=== PATIENT | male | born 1960 | race Caucasian/White ===

== ENCOUNTER 2017-04-02 14:46 | Observation (INO) | payer OTHER ==
[~2017-04-02] VITALS: Ht 182.9 cm; Wt 90.0 kg
[2017-04-02 14:48] VITALS: BP 180/98; PULSE 77; RESP 17; TEMP 98.4; O2SAT 100
--- NOTE | 2017-04-02 15:02 | PD ---
HPI Chief Complaint: Cardiac Complaint Time Seen by Provider: 15:02 Travel History International Travel<30 days: No Contact w/Intl Traveler<30days: No Traveled to known affect area: No History of Present Illness HPI 56-year-old male with history of diabetes, tobacco cigarette use, presents to emergency department for evaluation of left-sided chest pain. Patient states he was awoken this morning by a sudden pain in his left chest. This radiated to his left arm with associated shortness of breath and lightheadedness. Patient states that it did subside however he has had different palpitations and sensations in his chest throughout the day. Currently he is pain-free. Patient states he has not had a heart attack in the past. He does recall a stress test approximately 7 years ago. Denies any recent illnesses, fever, or chills. Patient would also like me to evaluate his right great toe. He states that he has had a wound on the plantar surface of it for the last 3 months and has been "handling it pretty well." He states that he noticed this morning the toe was red and swollen and more painful. Denies any new injury. No fever or chills. No other symptoms at this time. PFSH Past Medical History Diabetes: Yes Social History Tobacco Use: Yes Allergies-Medications (Allergen,Severity, Reaction): Coded Allergies: No Known Allergies (Unverified , 04/02/17) Review of Systems Except as stated in HPI: all other systems reviewed are Neg Physical Exam Narrative GENERAL: Well-nourished male patient, in no acute distress SKIN: Focused skin assessment warm/dry. There is a 1 cm in diameter callus on the plantar surface of the right great toe with an opening at the middle. The toe is erythematous and tender to touch. HEAD: Atraumatic. Normocephalic. EYES: Pupils equal and round. No scleral icterus. No injection or drainage. ENT: No nasal bleeding or discharge. Mucous membranes pink and moist. NECK: Trachea midline. No JVD. CARDIOVASCULAR: Regular rate and rhythm. No murmur appreciated. RESPIRATORY: No accessory muscle use. Clear to auscultation. Breath sounds equal bilaterally. GASTROINTESTINAL: Abdomen soft, non-tender, nondistended. Hepatic and splenic margins not palpable. MUSCULOSKELETAL: No obvious deformities. No clubbing. No cyanosis. NEUROLOGICAL: Awake and alert. No obvious cranial nerve deficits. Motor grossly within normal limits. Normal speech. Data Data Last Documented VS Vital Signs Date Time Temp Pulse Resp B/P Pulse Ox O2 Delivery O2 Flow Rate FiO2 04/02/17 16:46 97.8 69 16 172/86 100 Room Air Orders Electrocardiogram (04/02/17 15:34) Basic Metabolic Panel (Bmp) (04/02/17 15:34) Ckmb (Isoenzyme) Profile (04/02/17 15:34) Complete Blood Count With Diff (04/02/17 15:34) Magnesium (Mg) (04/02/17 15:34) Prothrombin Time / Inr (Pt) (04/02/17 15:34) Act Partial Throm Time (Ptt) (04/02/17 15:34) Troponin I (04/02/17 15:34) Chest, Single Ap (04/02/17 15:34) Ecg Monitoring (04/02/17 15:34) Bilateral Bp Monitoring (04/02/17 15:34) Iv Access Insert/Monitor (04/02/17 15:34) Oximetry (04/02/17 15:34) Oxygen Administration (04/02/17 15:34) Sodium Chloride 0.9% Flush (Ns Flush) (04/02/17 15:45) Sodium Chlorid 0.9% 500 Ml Inj (Ns 500 M (04/02/17 15:45) Toe (Min 2vws) (04/02/17 ) Sulfamet-Trimeth Ds 800-160 Mg (Bactrim (04/02/17 17:30) Cephalexin (Keflex) (04/02/17 17:30) Labs Laboratory Tests Test 04/02/17 15:35 White Blood Count 8.0 TH/MM3 Red Blood Count 5.52 MIL/MM3 Hemoglobin 14.6 GM/DL Hematocrit 44.3 % Mean Corpuscular Volume 80.3 FL Mean Corpuscular Hemoglobin 26.5 PG Mean Corpuscular Hemoglobin 33.0 % Concent Red Cell Distribution Width 15.1 % Platelet Count 299 TH/MM3 Mean Platelet Volume 8.5 FL Neutrophils (%) (Auto) 67.6 % Lymphocytes (%) (Auto) 21.8 % Monocytes (%) (Auto) 8.2 % Eosinophils (%) (Auto) 2.1 % Basophils (%) (Auto) 0.3 % Neutrophils # (Auto) 5.4 TH/MM3 Lymphocytes # (Auto) 1.7 TH/MM3 Monocytes # (Auto) 0.7 TH/MM3 Eosinophils # (Auto) 0.2 TH/MM3 Basophils # (Auto) 0.0 TH/MM3 CBC Comment DIFF FINAL Differential Comment Prothrombin Time 10.3 SEC Prothromb Time International 0.9 RATIO Ratio Activated Partial 30.2 SEC Thromboplast Time Sodium Level 138 MEQ/L Potassium Level 4.3 MEQ/L Chloride Level 104 MEQ/L Carbon Dioxide Level 30.1 MEQ/L Anion Gap 4 MEQ/L Blood Urea Nitrogen 15 MG/DL Creatinine 1.02 MG/DL Estimat Glomerular Filtration 75 ML/MIN Rate Random Glucose 191 MG/DL Calcium Level 9.3 MG/DL Magnesium Level 2.2 MG/DL Total Creatine Kinase 62 U/L Troponin I LESS THAN 0.02 NG/ML MDM Medical Decision Making Medical Screen Exam Complete: Yes Emergency Medical Condition: Yes Medical Record Reviewed: Yes Differential Diagnosis Chest wall pain versus ACS versus pleuritic pain versus anxiety Cellulitis versus osteoarthritis versus abscess Narrative Course 56-year-old male presents to emergency department for evaluation. Patient appears without distress. He does have noticed cellulitis of the right great toe and will be given Bactrim and Keflex for this.. X-ray imaging is without acute bony abnormality. CBC is without leukocytosis. BMP is also without acute concern. Troponin is less than 0.02. Chest x-ray shows no acute cardiopulmonary disease. Patient will be admitted for further evaluation of this chest pain to the chest pain center. Diagnosis Primary Impression: Chest pain Qualified Code: R07.9 - Chest pain, unspecified type Additional Impression: Cellulitis of right toe Admitting Information Admitting Physician Requests: Observation Med/Other Pt SpecificInfo: Prescription(s) given Scripts Cephalexin (Keflex)500 Mg [id number] Mg PO Q6H 5 Days Ref 0 Prov:Shereen Ziegler 04/02/17 Sulfamethoxazole-Trimethoprim (Bactrim DS)800-160 Mg Tab1 Tab PO BID #20 TAB Ref 0 Prov:Shereen Ziegler 04/02/17 Condition: Stable Shereen Ziegler Apr 02, 2017 15:02
[2017-04-02 15:07] VITALS: BP 174/92; PULSE 77; RESP 16; O2SAT 99
[2017-04-02 15:36] VITALS: RESP 17; O2SAT 100
[2017-04-02] MEDS: SODIUM CHLORIDE 0.9% FLUSH 10 ML FLUSH IVF PRN ×2 (15:39→16:46)
[2017-04-02 15:40] VITALS: BP_SYST 146; BP_SYST 174; BP_DIAS 75; BP_DIAS 85; PULSE 76; RESP 17; O2SAT 99
[2017-04-02] MEDS ORDERED: SODIUM CHLORID 0.9% 500 ML INJ 500 ML IV ONE (15:45)
--- NOTE | 2017-04-02 16:10 | RADRPT ---
EXAM DATE/TIME: 04/02/2017 15:59 [facility] COMPARISON: No previous studies available for comparison. INDICATIONS : Swelling, inflammation, and pain in tuft of 1st digit, right foot. No known injury. MEDICAL HISTORY : None. SURGICAL HISTORY : None. ENCOUNTER: Initial ACUITY: 2 days PAIN SCORE: 7/10 LOCATION: Right 1st digit, right foot. FINDINGS: Examination of the first digit of the right foot demonstrates no evidence of fracture or dislocation. No radiopaque foreign bodies are seen. The soft tissues are intact. CONCLUSION: Negative for fracture or significant degenerative changes. Hemant Barajas MD FACR on April 02, 2017 at 16:07 Board Certified Radiologist. This report was verified electronically.
--- NOTE | 2017-04-02 16:11 | RADRPT ---
EXAM DATE/TIME: 04/02/2017 15:57 [facility] COMPARISON: No previous studies available for comparison. INDICATIONS : Heart palpitations and shortness of breath. MEDICAL HISTORY : None. SURGICAL HISTORY : None. ENCOUNTER: Initial ACUITY: 1 day PAIN SCORE: 0/10 LOCATION: chest FINDINGS: A single view of the chest demonstrates the lungs to be symmetrically aerated without evidence of mas s, infiltrate or effusion. The cardiomediastinal contours are unremarkable. Osseous structures are intact. CONCLUSION: 1. No acute cardiopulmonary disease. Larry Zee MD on April 02, 2017 at 16:08 Board Certified Radiologist. This report was verified electronically.
[2017-04-02 16:38] LABS: AUTOMATED NEUTROPHIL # 5.4 TH/MM3 (1.8-7.7); BASOPHIL % 0.3 % (0.0-2.0); EOSINOPHIL # 0.2 TH/MM3 (0-0.4); EOSINOPHIL % 2.1 % (0.0-4.0); HEMATOCRIT 44.3 % (39.0-51.0); HEMO FLAGS DIFF FINAL; LYMPH % 21.8 % (9.0-44.0); LYMPHOCYTE # 1.7 TH/MM3 (1.0-4.8); MEAN CELL VOLUME 80.3 FL (80.0-100.0); MEAN CORPUSCULAR HEMOGLOBIN 26.5 PG (27.0-34.0); MONO % 8.2 % (0.0-8.0); NEUT % 67.6 % (16.0-70.0); PLATELET COUNT 299 TH/MM3 (150-450); RED BLOOD COUNT 5.52 MIL/MM3 (4.50-5.90); RED CELL DISTRIBUTION WIDTH 15.1 % (11.6-17.2)
[2017-04-02 16:42] VITALS: BP 161/89; PULSE 68; RESP 16; TEMP 97.9; O2SAT 100
[2017-04-02 16:46] VITALS: BP 172/86; PULSE 69; RESP 16; TEMP 97.8; O2SAT 100
[2017-04-02 16:50] LABS: APTT (PATIENT) 30.2 SEC (24.3-30.1); INTERNATIONAL NORMALIZED RATIO 0.9 RATIO; PROTHROMBIN TIME - PATIENT 10.3 SEC (9.8-11.6)
[2017-04-02 17:06] LABS: ANION GAP 4 MEQ/L (5-15); BICARBONATE 30.1 MEQ/L (21.0-32.0); BLOOD UREA NITROGEN 15 MG/DL (7-18); CHLORIDE 104 MEQ/L (98-107); GLOMERULAR FILTRATION RATE 75 ML/MIN (>89); MAGNESIUM 2.2 MG/DL (1.5-2.5); POTASSIUM 4.3 MEQ/L (3.5-5.1); SODIUM (NA) 138 MEQ/L (136-145)
[2017-04-02 17:07] LABS: CREATINE KINASE 62 U/L (39-308)
[2017-04-02] MEDS ORDERED: SULFAMETHOXAZOLE-TRIMETHOPRIM DS 800-160 MG TAB PO ONE (17:30)
[2017-04-02] MEDS ORDERED: CEPHALEXIN MONOHYDRATE 500 MG CAP PO ONE (17:30)
[2017-04-02] MEDS ORDERED: BACT800T5 PO (17:48)
[2017-04-02] MEDS ORDERED: CEPH-460 PO (17:48)
--- NOTE | 2017-04-03 08:01 | EKG ---
Date Performed: 04/02/2017 Time Performed: 16:04:54 PTAGE: 56 years EKG: Sinus rhythm NORMAL ECG NO PREVIOUS TRACING DOCTOR: Quinton Pearson Interpretating Date/Time 04/03/2017 07:56:12
== END 2017-04-02 18:14 | disposition left against medical advice (07) ==
LOC: NEPC 14:46 → NEDA 17:52
PROVIDERS: ADMIT Internal Medicine Cardiovascular Disease; ATTEND Internal Medicine Cardiovascular Disease
DX: R07.9 Chest pain, unspecified (principal); L03.031 Cellulitis of right toe; M79.602 Pain in left arm; R06.02 Shortness of breath; R42 Dizziness and giddiness; R00.2 Palpitations; E11.9 Type 2 diabetes mellitus without complications; F17.210 Nicotine dependence, cigarettes, uncomplicated
CPT/HCPCS: 71010; 73660; 80048; 82550; 83735; 84484; 85025; 85610; 85730; 93005; 96360; 99285; J7040

== ENCOUNTER 2018-03-13 14:13 | Inpatient (IN) | payer MEDICAID, OTHER ==
[~2018-03-13] VITALS: Ht 182.9 cm; Wt 102.1 kg
[~2018-03-13 14:13] MED LIST: BACT800T5 PO; CEPH-460 PO
[2018-03-13 14:17] VITALS: BP 165/78; PULSE 64; RESP 16; TEMP 98.3; O2SAT 98
--- NOTE | 2018-03-13 14:27 | PD ---
HPI Chief Complaint: Skin Problem Time Seen by Provider: 14:26 Travel History International Travel<30 days: No Contact w/Intl Traveler<30days: No Traveled to known affect area: No History of Present Illness HPI Patient has a right toe infection/ulceration which has been present intermittently for at least a year. However more recently he went to his primary physician who did an outpatient x-ray, primary care is Dr. Pedersen, and this x-ray was read as possible osteomyelitis of his right toe. thus the patient was referred to the emergency department for IV antibiotics, he had just started on p.o. antibiotics for 1 day previous to this. Over the last 2 days he started to develop swelling and soreness to his right toe, he has also been given a referral to wound care out of [place], and will be seeing a dog barber as well. He is a known diabetic and is on metformin 1000 mg. Patient denies any active associated factors such as fever, nausea, vomiting, diarrhea, chest pain, back pain, flank pain, sore throat/cough/runny nose. No nondrug allergies Past medical history significant for diabetes, no alcohol use however positive marijuana use daily PFSH Past Medical History Diabetes: Yes Social History Alcohol Use: No (quit yrs ago) Tobacco Use: Yes Substance Use: Yes (marijuanna daily) Allergies-Medications (Allergen,Severity, Reaction): Coded Allergies: No Known Allergies (Unverified Adverse Reaction, Unknown, 03/13/18) Reported Meds & Prescriptions Reported Meds & Active Scripts Active Reported Aspirin 81 Low Dose (Aspirin) 81 Mg Chew 81 Mg CHEW DAILY Lyrica (Pregabalin) 100 Mg Cap 100 Mg PO BID Doxazosin (Doxazosin Mesylate) 1 Mg Tab 1 Mg PO DAILY Metformin (Metformin HCl) 500 Mg Tab 500 Mg PO BIDPC Review of Systems General / Constitutional: No: Fever Eyes: No: Visual changes HENT: No: Headaches Cardiovascular: No: Chest Pain or Discomfort Respiratory: No: Shortness of Breath Gastrointestinal: No: Abdominal Pain Genitourinary: No: Dysuria Musculoskeletal: No: Pain Skin: Positive Lesions Neurologic: No: Weakness Psychiatric: No: Depression Endocrine: No: Polydipsia Hematologic/Lymphatic: No: Easy Bruising Physical Exam Narrative GENERAL: SKIN: Warm and dry. HEAD: Atraumatic. Normocephalic. EYES: Pupils equal and round. No scleral icterus. No injection or drainage. ENT: No nasal bleeding or discharge. Mucous membranes pink and moist. NECK: Trachea midline. No JVD. CARDIOVASCULAR: Regular rate and rhythm. RESPIRATORY: No accessory muscle use. Clear to auscultation. Breath sounds equal bilaterally. GASTROINTESTINAL: Abdomen soft, non-tender, nondistended. MUSCULOSKELETAL: Extremities without clubbing, cyanosis, or edema. No obvious deformities. Right toe has some edema diffusely to the PIP and DIP area, no cellulitic changes or streaking noted, however tenderness to palpation are found , no active drainage, on the plantar surface there is a 5 cm oval-shaped nondraining callus appearing lesion NEUROLOGICAL: Awake and alert. No obvious cranial nerve deficits. Motor grossly within normal limits. Five out of 5 muscle strength in the arms and legs. Normal speech. PSYCHIATRIC: Appropriate mood and affect; insight and judgment normal. Data Data Last Documented VS Vital Signs Date Time Temp Pulse Resp B/P (MAP) Pulse Ox O2 Delivery O2 Flow Rate FiO2 03/13/18 14:17 98.3 64 16 165/78 (107) 98 Orders Orders Sepsis Workup Initiated (03/13/18 ) Complete Blood Count With Diff (03/13/18 14:49) Comprehensive Metabolic Panel (03/13/18 14:49) Lactic Acid Sepsis Protocol (03/13/18 14:49) Blood Culture (03/13/18 14:49) Blood Glucose (03/13/18 14:49) Ecg Monitoring (03/13/18 14:49) Iv Access Insert/Monitor (03/13/18 14:49) Oximetry (03/13/18 14:49) Vancomycin Inj (Vancomycin Inj) (03/13/18 14:49) Cefepime Inj (Maxipime Inj) (03/13/18 15:00) [facility] Medical Decision Making Medical Screen Exam Complete: Yes Emergency Medical Condition: Yes Medical Record Reviewed: Yes Differential Diagnosis Cellulitis versus osteomyelitis versus necrotizing fasciitis versus lymphangitis Narrative Course X-ray of the right great toe perform on March 13 at [facility] and read by radiologist as-abnormal lytic changes at the first interphalangeal joint level medially with cortical interruption. Associated soft tissue swelling, the findings are concerning for osteomyelitis. Diagnosis Primary Impression: Osteomyelitis right toe Juan Carlos Pak MD Mar 13, 2018 14:27
[2018-03-13] MEDS ORDERED: ASPI1CHW4 CHEW (14:40)
[2018-03-13] MEDS ORDERED: METF500T PO (14:40)
[2018-03-13] MEDS ORDERED: DOXA1TAB36 PO (14:40)
[2018-03-13] MEDS ORDERED: LYRI100C PO (14:40)
[2018-03-13] MEDS ORDERED: VANCOMYCIN INJ 1,000 MG in SODIUM CHLOR 0.9% 250 ML INJ 250 ML IV STA (14:49)
[2018-03-13] MEDS ORDERED: CEFEPIME INJ 2,000 MG in SODIUM CHLORIDE 0.9% INJ 100 ML IV ONE (15:00)
[2018-03-13 15:06] VITALS: O2SAT 98
[2018-03-13 15:12] LABS: AUTOMATED NEUTROPHIL # 4.9 TH/MM3 (1.8-7.7); BASOPHIL # 0.1 TH/MM3 (0-0.2); BASOPHIL % 1.4 % (0.0-2.0); EOSINOPHIL # 0.1 TH/MM3 (0-0.4); HEMOGLOBIN 13.7 GM/DL (13.0-17.0); LYMPHOCYTE # 1.4 TH/MM3 (1.0-4.8); MEAN CELL VOLUME 84.4 FL (80.0-100.0); MEAN CORPUSCULAR HEMOGLOBIN 28.2 PG (27.0-34.0); MEAN CORPUSCULAR HGB CONC 33.5 % (32.0-36.0); MEAN PLATELET VOLUME 7.9 FL (7.0-11.0); MONO % 6.9 % (0.0-8.0); MONOCYTE # 0.5 TH/MM3 (0-0.9); NEUT % 69.7 % (16.0-70.0); PLATELET COUNT 210 TH/MM3 (150-450); RED BLOOD COUNT 4.85 MIL/MM3 (4.50-5.90); RED CELL DISTRIBUTION WIDTH 14.4 % (11.6-17.2)
[2018-03-13 15:20] LABS: CHLORIDE 109 MEQ/L (98-107); SODIUM (NA) 141 MEQ/L (136-145)
[2018-03-13 15:25] LABS: ALBUMIN 3.5 GM/DL (3.4-5.0); BICARBONATE 27.1 MEQ/L (21.0-32.0); CALCIUM 8.5 MG/DL (8.5-10.1); GLUCOSE,RANDOM 202 MG/DL (74-106)
[2018-03-13 15:26] LABS: BLOOD UREA NITROGEN 20 MG/DL (7-18)
[2018-03-13 15:28] LABS: ALT (GPT) 16 U/L (12-78)
[2018-03-13 15:29] LABS: AST (GOT) 10 U/L (15-37); GLOMERULAR FILTRATION RATE 62 ML/MIN (>89)
[2018-03-13 15:30] LABS: TOTAL BILIRUBIN ADULT 0.3 MG/DL (0.2-1.0); TOTAL PROTEIN 7.4 GM/DL (6.4-8.2)
[2018-03-13 15:32] LABS: ALKALINE PHOSPHATASE 64 U/L (45-117)
[2018-03-13] MEDS ORDERED: GADODIAMIDE PF 287 MG/ML 5 ML VIAL (for RAD MRI) IVCONTRAST ONE (15:33)
--- NOTE | 2018-03-13 16:10 | RADRPT ---
EXAM DATE: 03/13/2018 4:04 PM EDT AGE/SEX: 57 years / Male INDICATIONS: Right foot, first digit inflammation. CLINICAL DATA: This is the patient's initial encounter. Patient reports that signs and symptoms have been present for 1 day and indicates a pain score of 7/10. MEDICAL/SURGICAL HISTORY: . Diabetes None. COMPARISON: [facility], XR FOOT (MIN 3 VIEWS), RIGHT, 03/13/2018. . FINDINGS: Again noted is destructive lytic lesions of the first interphalangeal joint involving the proximal an d distal phalanges with adjacent soft tissue ulceration. The rest of the examination has not changed. CONCLUSION: Abnormal destructive lytic lesions of the first interphalangeal joint highly suspicious for osteomyel itis not significantly changed. Electronically signed by: Shahzad Owens MD 03/13/2018 4:09 PM EDT
[2018-03-13 16:12] VITALS: BP 155/80
[2018-03-13] MEDS ORDERED: MAGNESIUM HYDROXIDE SUSP 30 ML CUP PO PRN (16:45)
[2018-03-13] MEDS ORDERED: TEMAZEPAM 15 MG CAP PO PRN (16:45)
[2018-03-13] MEDS ORDERED: LACTULOSE SYRUP 20 GM/30 ML CUP PO PRN (16:45)
[2018-03-13] MEDS ORDERED: DEXTROSE 50% IN WATER 50 ML VIAL(D50) IV PUSH PRN (16:45)
[2018-03-13] MEDS ORDERED: ONDANSETRON HCL 4 MG/2 ML VIAL IVP PRN (16:45)
[2018-03-13] MEDS ORDERED: SENNOSIDES 8.6 MG TAB PO PRN (16:45)
[2018-03-13] MEDS ORDERED: ACETAMINOPHEN 325 MG TAB PO PRN (16:45)
[2018-03-13] MEDS ORDERED: BISACODYL 10 MG SUPP RECTAL PRN (16:45)
[2018-03-13] MEDS ORDERED: NALOXONE HCL 0.4 MG/ML AMP IV PUSH PRN (16:45)
[2018-03-13] MEDS ORDERED: GLUCAGON 1 MG/ML VIAL OTHER PRN (16:45)
[2018-03-13] MEDS ORDERED: SODIUM CHLORIDE 0.9% FLUSH 10 ML FLUSH IV FLUSH PRN (16:45)
[2018-03-13] MEDS ORDERED: Vancomycin Consult Pharmacy 1 EA OTHER SCH (16:45)
[2018-03-13] MEDS: HEPARIN SODIUM - SQ 10,000 UNITS/ML VIAL SQ SCH (17:20)
[2018-03-13] MEDS: INSULIN ASPART SUPPLEMENTAL SCALE SQ SCH ×2 (17:27→20:26)
--- NOTE | 2018-03-13 18:06 | HHI.HP ---
[facility] Service [place] [facility] Primary Care Physician Gregory Pedersen MD Admission Diagnosis RIGHT GREAT TOE OSTEOMYELITIS Diagnoses: (1) Cellulitis of right toe Diagnosis: Principal Chief Complaint: Patient told to come here by paramedical doctor because of abnormal x-ray Travel History International Travel<30 Days: No Contact w/Intl Traveler <30 Da: No Traveled to Known Affected Are: No History of Present Illness Written by Mickey Justin, acting as scribe for Dr. León on 03/13/18 at 18: 06. 57-year-old male with known history of diabetes, diabetic neuropathy, benign prostatic hypertrophy, history of morbid obesity, history of renal failure, depression who presented to the emergency department at the request of his prior medical doctor because of abnormal foot x-ray. Patient indicates that he has had a long-standing history of callus and wound on his right big toe. It dates back over a year ago. He states that he has come to the ER here in the past and has been given antibiotics and sent home. Patient recently went up to [place] on February 05 in which he had significant swelling of his entire foot so he went to a hospital there and had x-ray performed and told that he has an infection but there was no osteomyelitis. Patient was placed on antibiotics and took until completion. Patient states that he went to a prior medical doctor yesterday and had evaluation done he was started on Bactrim and had outpatient x-ray performed today. Patient states that he received a phone call from the prior medical doctor telling him to come to the emergency department because x-ray showed osteomyelitis and that there was infection in the bone. Patient states that he has chronic wound with callus there. There is been no drainage, erythema or any significant pain. Intermittently he states that he will peel the callus off revealing a large ulcer but he will keep it covered and it will grow back. Patient did come to the emergency department and was recommended by the ER physician that the patient be observed in the hospital with podiatry consultation for further evaluation. Patient denies any fever, chills Review of Systems Constitutional: COMPLAINS OF: Weight loss (Weight loss from 370 pounds down 280 pounds when he quit drinking alcohol) Integumentary: COMPLAINS OF: Abnormal pigmentation Except as stated in HPI: all other systems reviewed are Neg Past Family Social History Past Medical History Diabetes Peripheral neuropathy Benign prostatic hypertrophy History of obesity with significant weight loss over the last year from 370 pounds down to 180 pounds Depression History of renal failure from urinary retention. Patient has history of self cathing Chronic tobacco use History of alcohol abuse Past Surgical History Patient denies any previous surgeries Reported Medications Reported Meds & Active Scripts Active Reported Aspirin 81 Low Dose (Aspirin) 81 Mg Chew 81 Mg CHEW DAILY Lyrica (Pregabalin) 100 Mg Cap 100 Mg PO BID Doxazosin (Doxazosin Mesylate) 1 Mg Tab 2 Mg PO DAILY Metformin (Metformin HCl) 500 Mg Tab 500 Mg PO BIDPC Allergies: Coded Allergies: No Known Allergies (Unverified Allergy, Unknown, 03/13/18) Family History Reviewed is significant for mother at age 75 with diabetes, patient required lower extremity amputation, she had coronary artery disease with bypass surgery. Father still alive at age 89 with diabetes, coronary artery disease with bypass surgery. Patient states that brother also with bypass surgery Social History Patient does continue to smoke, states he only smoked 1 cigarette daily. He is a smoker half a pack a day since he was 13 years old. He does smoke marijuana 2 times daily. Patient denies any alcohol use at this time. Used to be heavy drinker in the past Physical Exam Vital Signs Vital Signs Date Time Temp Pulse Resp B/P (MAP) Pulse Ox O2 Delivery O2 Flow Rate FiO2 03/13/18 16:12 66 18 155/80 (105) 99 03/13/18 15:06 98 Room Air 03/13/18 14:17 98.3 64 16 165/78 (107) 98 Physical Exam GENERAL: sitting up in bed appears comfortable HEENT: Extraocular muscles are intact. Conjunctivae were clear. NECK: Trachea midline no deviation. No JVD, no bruits are appreciated CARDIAC: Regular rhythm, regular rate. no murmurs LUNGS: Clear to auscultation bilaterally. No wheeze. No use of accessory muscles on inspiration or expiration. ABDOMEN: Soft, nontender. Nondistended. Bowel sounds heard in all 4 quadrants. Negative rebound, negative guarding EXTREMITIES: No edema, pulses are equal bilaterally. NEUROLOGY: Mood and affect appear appropriate. Cranial nerves II through XII grossly intact. Muscle strength 5/5 in upper and lower extremities bilaterally. RIGHT GREAT TOE: Patient does have a rather extensive callus noted over the dorsal surface of the great toe without any drainage, pain, exudates, no significant erythema Laboratory Laboratory Tests Test 03/13/18 14:56 03/13/18 15:03 White Blood Count 7.0 Red Blood Count 4.85 Hemoglobin 13.7 Hematocrit 41.0 Mean Corpuscular Volume 84.4 Mean Corpuscular Hemoglobin 28.2 Mean Corpuscular Hemoglobin Concent 33.5 Red Cell Distribution Width 14.4 Platelet Count 210 Mean Platelet Volume 7.9 Neutrophils (%) (Auto) 69.7 Lymphocytes (%) (Auto) 20.0 Monocytes (%) (Auto) 6.9 Eosinophils (%) (Auto) 2.0 Basophils (%) (Auto) 1.4 Neutrophils # (Auto) 4.9 Lymphocytes # (Auto) 1.4 Monocytes # (Auto) 0.5 Eosinophils # (Auto) 0.1 Basophils # (Auto) 0.1 CBC Comment DIFF FINAL Differential Comment Erythrocyte Sedimentation Rate 15 Blood Urea Nitrogen 20 Creatinine 1.20 Random Glucose 202 Total Protein 7.4 Albumin 3.5 Calcium Level 8.5 Alkaline Phosphatase 64 Aspartate Amino Transf (AST/SGOT) 10 Alanine Aminotransferase (ALT/SGPT) 16 Total Bilirubin 0.3 Sodium Level 141 Potassium Level 4.2 Chloride Level 109 Carbon Dioxide Level 27.1 Anion Gap 5 Estimat Glomerular Filtration Rate 62 C-Reactive Protein 1.09 Lactic Acid Level 0.8 Date/Time Source Procedure Growth Status 03/13/18 15:03 Blood Peripheral Aerobic Blood Culture Pending Received 03/13/18 15:03 Blood Peripheral Anaerobic Blood Culture Pending Received Result Diagram: 03/13/18 1456 03/13/18 1456 Imaging Last Impressions Foot X-Ray 03/13/18 0000 Signed Impressions: CONCLUSION: Abnormal destructive lytic lesions of the first interphalangeal joint highly merlos spicious for osteomyelitis not significantly changed. Caprini VTE Risk Assessment Caprini VTE Risk Assessment: Mod/High Risk (score >= 2) Caprini Risk Assessment Model Point Value = 1 Point Value = 2 Point Value = 3 Point Value = 5 Age 41-60 Minor surgery BMI > 25 kg/m2 Swollen legs Varicose veins or History of unexplained or recurrent spontaneous Oral contraceptives or hormone replacement Sepsis (< 1 month) Serious lung disease, including pneumonia (< 1 month) Abnormal pulmonary function Acute myocardial infarction Congestive heart failure (< 1 month) History of inflammatory bowel disease Medical patient at bed rest Age 61-74 Arthroscopic surgery Major open surgery (> 45 min) Laparoscopic surgery (> 45 min) Malignancy Confined to bed (> 72 hours) Immobilizing plaster cast Central venous access Age >= 75 History of VTE Family history of VTE Factor V Leiden Prothrombin [id number] Lupus anticoagulant Anticardiolipin antibodies Elevated serum homocysteine Heparin-induced thrombocytopenia Other congenital or acquired thrombophilia Stroke (< 1 month) Elective arthroplasty Hip, pelvis, or leg fracture Acute spinal cord injury (< 1 month) Prophylaxis Regimen Total Risk Factor Score Risk Level Prophylaxis Regimen 0-1 Low Early ambulation 2 Moderate Order ONE of the following: *Sequential Compression Device (SCD) *Heparin 5000 units SQ BID 3-4 Higher Order ONE of the following medications: *Heparin 5000 units SQ TID *Enoxaparin/Lovenox 40 mg SQ daily (WT < 150 kg, CrCl > 30 mL/min) *Enoxaparin/Lovenox 30 mg SQ daily (WT < 150 kg, CrCl > 10-29 mL/min) *Enoxaparin/Lovenox 30 mg SQ BID (WT < 150 kg, CrCl > 30 mL/min) AND/OR *Sequential Compression Device (SCD) 5 or more Highest Order ONE of the following medications: *Heparin 5000 units SQ TID (Preferred with Epidurals) *Enoxaparin/Lovenox 40 mg SQ daily (WT < 150 kg, CrCl > 30 mL/min) *Enoxaparin/Lovenox 30 mg SQ daily (WT < 150 kg, CrCl > 10-29 mL/min) *Enoxaparin/Lovenox 30 mg SQ BID (WT < 150 kg, CrCl > 30 mL/min) AND *Sequential Compression Device (SCD) Assessment and Plan Assessment and Plan Right great toe callus with abnormal x-ray -Follow-up x-ray does indicate destructive lytic lesions of the first interphalangeal joint highly suspicious for osteomyelitis -MRI of the foot is pending -Patient was given vancomycin and cefepime in the emergency department. We will continue vancomycin and changed to Zosyn -Consulted podiatry. case was discussed w fire prevention forester telesales advisor and she recommended: X-ray of the foot, MRI of the foot, MABEL studies -Patient will likely require some surgical intervention at least debridement or bone biopsy. Further plans per podiatry -Continue pain control -ESR wnl and CRP elevated Diabetes -Accu-Cheks with sliding scale insulin -Diabetic diet DVT prevention -Subcutaneous heparin This note was transcribed by lucy Justin. I, Dr. Marysol León personally performed the history, physical exam, and medical decision making; and confirmed the accuracy of the information in the transcribed note. Authenticated by Dr. Marysol León on 03/13/18 at 18:06. Code Status Full code Discussed Condition With patient and ER physician Mickey Justin Mar 13, 2018 18:06 Marysol León MD Mar 13, 2018 18:07
[2018-03-13 20:00] VITALS: BP 189/91; PULSE 60; RESP 20; TEMP 96.3; O2SAT 98
[2018-03-13] MEDS: PREGABALIN 100 MG CAP PO SCH (20:15)
[2018-03-13] MEDS: SODIUM CHLORIDE 0.9% FLUSH 10 ML FLUSH IV FLUSH SCH (20:15)
[2018-03-13] MEDS: PIPERACIL-TAZO 4.5 GM PREMIX 100 ML IV SCH (20:15)
[2018-03-13] MEDS: DOCUSATE SODIUM 50 MG/SENNA 8.6 MG TAB PO SCH (20:15)
[2018-03-13] MEDS: VANCOMYCIN 1,500 MG/NS 500 ML IV SCH ×2 (20:15)
--- NOTE | 2018-03-13 20:36 | RADRPT ---
EXAM DATE: 03/13/2018 8:23 PM EDT AGE/SEX: 57 years / Male INDICATIONS: Osteomyelitis. Right great toe infection. CLINICAL DATA: This is the patient's initial encounter. Patient reports that signs and symptoms have been present for > 1 year and indicates a pain score of 0/10. MEDICAL/SURGICAL HISTORY: Diabetes mellitus type II. None. COMPARISON: HPO, FOOT RIGHT COMPLETE ([id number]), 03/13/2018. . TECHNIQUE: Multiplanar, multisequence MRI examination was performed without contrast and after th e intravenous administration of 20cc ml Omniscan (gadodiamide) single exam dose. FINDINGS: Bones: There is dislocation at the first interphalangeal joint with the distal phalanx being displace d dorsally. There is abnormal signal in the first proximal phalanx being more prominent distally dist ally. There appears to be destruction of the distal medial cortex of the first proximal phalanx. Ther e is abnormal signal involving the bone and surrounding soft tissue in this region. There also appear to be similar signal abnormality seen in the proximal aspect of the first distal phalanx. The remain ing bony structures demonstrate normal signal. Joint Spaces: Again noted is the dislocation of the first interphalangeal joint. Tendons: The flexor tendons are intact. Soft Tissues: There is edema seen at the first digit. Other: The plantar fascia is intact. No signal abnormalities are seen in the plantar musculature. Post Contrast: There is enhancement at the first proximal and distal phalanx. CONCLUSION: 1. Suspected osteomyelitis involving the first proximal phalanx and distal phalanx. There appears to be bony destruction at the distal medial first proximal phalanx. 2. Dislocation at the first interphalangeal joint with the distal phalanx being displaced dorsally. Electronically signed by: Josse Thorpe MD 03/13/2018 8:35 PM EDT
[2018-03-14] VITALS: BP 158/70; PULSE 50; RESP 20; TEMP 96.3; O2SAT 98
[2018-03-14] MEDS: HEPARIN SODIUM - SQ 10,000 UNITS/ML VIAL SQ SCH ×2 (00:47→16:29)
[2018-03-14] MEDS: PIPERACIL-TAZO 4.5 GM PREMIX 100 ML IV SCH ×4 (00:47→22:04)
[2018-03-14 07:37] VITALS: BP 166/81; PULSE 64; RESP 20; TEMP 96.1; O2SAT 98
[2018-03-14] MEDS: DOCUSATE SODIUM 50 MG/SENNA 8.6 MG TAB PO SCH ×2 (07:56→22:05)
[2018-03-14] MEDS: DOXAZOSIN MESYLATE 1 MG TAB PO SCH (07:56)
[2018-03-14] MEDS: PREGABALIN 100 MG CAP PO SCH ×2 (07:56→22:04)
[2018-03-14] MEDS: INSULIN ASPART SUPPLEMENTAL SCALE SQ SCH ×4 (07:57→21:00)
[2018-03-14] MEDS: VANCOMYCIN 1,500 MG/NS 500 ML IV SCH ×4 (08:26→22:04)
[2018-03-14] MEDS: SODIUM CHLORIDE 0.9% FLUSH 10 ML FLUSH IV FLUSH SCH ×2 (08:48→22:04)
[2018-03-14] MEDS: LISINOPRIL 10 MG TAB PO SCH (09:07)
[2018-03-14] MEDS ORDERED: PNEUMOCOCCAL POLYVALENT INJ 25 MCG/0.5 ML SYR IM ONE (10:00)
--- NOTE | 2018-03-14 10:41 | HHI.PR ---
Subjective Remarks Patient seen and examined today to follow-up on diabetic ulceration. Patient states that he is doing well. States that he feels a his toe is improved. He indicates that he might be constipated. Last bowel movement was yesterday. Blood pressure mildly elevated. Patient remains afebrile Objective Vitals Vital Signs Date Time Temp Pulse Resp B/P (MAP) Pulse Ox O2 Delivery O2 Flow Rate FiO2 03/14/18 08:48 18 03/14/18 07:37 96.1 64 20 166/81 (109) 98 03/14/18 00:00 96.3 50 20 158/70 (99) 98 03/13/18 20:00 96.3 60 20 189/91 (123) 98 03/13/18 16:12 66 18 155/80 (105) 99 03/13/18 15:06 98 Room Air 03/13/18 14:17 98.3 64 16 165/78 (107) 98 I/O 03/13/18 03/13/18 03/13/18 03/14/18 03/14/18 03/14/18 06:59 14:59 22:59 06:59 14:59 22:59 Intake Total 585 ml 1180 ml Balance 585 ml 1180 ml Intake Oral 360 ml 480 ml IV Total 225 ml 700 ml # Voids 2 7 # Bowel Movements 0 1 Result Diagram: 03/13/18 1456 03/13/18 1456 Imaging Last Impressions Foot X-Ray 03/13/18 0000 Signed Impressions: CONCLUSION: Abnormal destructive lytic lesions of the first interphalangeal joint highly merlos spicious for osteomyelitis not significantly changed. Foot MRI 03/13/18 0000 Signed Impressions: CONCLUSION: 1. Suspected osteomyelitis involving the first proximal phalanx and distal pha lanx. There appears to be bony destruction at the distal medial first proximal phalanx. 2. Dislocation at the first interphalangeal joint with the distal phalanx bein g displaced dorsally. Objective Remarks GENERAL: Well-developed, well-nourished, in no acute distress. alert and orientated HEENT: Head is normocephalic without any lesions or masses noted. Facial features are symmetric. Eyes: Extraocular muscles are intact. Conjunctivae were clear. Moving all extremities, speech is clear NECK: Supple without any masses. Trachea midline no deviation. No JVD, CARDIAC: Regular rhythm, regular rate. S1/S2 are heard. No murmurs gallops or rubs. LUNGS: Clear to auscultation bilaterally. No wheeze, rhonchi or rales. No use of accessory muscles on inspiration or expiration. ABDOMEN: Soft, nontender. Nondistended. Bowel sounds heard in all 4 quadrants. No organomegaly or masses. Negative rebound, negative guarding EXTREMITIES: No edema, pulses are equal bilaterally. No cyanosis or clubbing NEUROLOGY: Mood and affect appear appropriate. Cranial nerves II through XII grossly intact. Moving all extremities, speech is clear RIGHT GREAT TOE: Patient does have a rather extensive callus noted over the dorsal surface of the great toe without any drainage, pain, exudates, no significant erythema Urinary Catheter: No Vascular Central Line Catheter: No A/P Assessment and Plan Right great toe callus with abnormal x-ray -Follow-up x-ray does indicate destructive lytic lesions of the first interphalangeal joint highly suspicious for osteomyelitis -Continue vancomycin and changed to Zosyn -Consulted podiatry. case was discussed w tape control skin or spar mill operator operations controller and she recommended: X-ray of the foot, MRI of the foot, MABEL studies -Patient will likely require some surgical intervention at least debridement or bone biopsy. Further plans per podiatry -Foot x-ray and foot MRI were performed please review results above -Continue pain control -ESR wnl and CRP elevated Elevated blood pressure -Lisinopril 10 mg daily was started -Continue monitor blood pressure Diabetes -Accu-Cheks with sliding scale insulin -Diabetic diet DVT prevention -Subcutaneous heparin Discharge Planning Discharge planning unable to ascertain at this time. We will need to await podiatry consultation, possible surgical intervention Mickey Justin Mar 14, 2018 10:41
[2018-03-14 11:17] VITALS: BP 164/77; PULSE 52; RESP 20; TEMP 96.4; O2SAT 98
[2018-03-14 15:05] VITALS: BP 161/77; PULSE 55; RESP 20; TEMP 97.2; O2SAT 96
--- NOTE | 2018-03-14 16:12 | PD.CONS ---
History of Present Illness Service Podiatry/foot and ankle surgeon Consult Requested By Reason for Consult Right plantar hallux ulcer/right hallux OM Primary Care Physician Gregory Pedersen MD Diagnoses: History of Present Illness Podiatry consulted for this 57-year-old male with history of diabetes, neuropathy, benign prostatic hypertrophy, history of morbid obesity, history of renal failure, depression who presented to the emergency department at the request of his PCP for abnormal foot x-ray. Patient states he has had callus present on the plantar aspect of his right hallux for quite some time, over a year ago. States he has been seen in the ED in the past and was given oral antibiotics and sent home. Patient has noticed increased swelling of entire foot as well as erythema. Patient denies any drainage, states he is neuropathic and has very minimal pain. He admits to peeling back the callus often. Has any nausea vomiting fevers or chills at this time. Review of Systems Constitutional: DENIES: Fatigue, Fever Endocrine: DENIES: Heat/cold intolerance Respiratory: DENIES: Cough, Shortness of breath Cardiovascular: DENIES: Chest pain, Palpitations Musculoskeletal: DENIES: Joint pain Neurologic: DENIES: Abnormal gait Psychiatric: DENIES: Anxiety, Confusion Past Family Social History Allergies: Coded Allergies: No Known Allergies (Unverified Allergy, Unknown, 03/13/18) Past Medical History As per HPI Active Ordered Medications Current Medications Medications (Trade) Dose Ordered Sig/Elliot Route Start Time Stop Time Status Last Admin (D50w (Vial) Inj) 50 ml UNSCH PRN IV PUSH 03/13/18 16:45 (Glucagon Inj) 1 mg UNSCH PRN OTHER 03/13/18 16:45 (NovoLOG SUPPLEMENTAL SCALE) 1 ACHS SLIDING SCALE SQ 03/13/18 17:00 03/14/18 11:35 (NS Flush) 2 ml UNSCH PRN IV FLUSH 03/13/18 16:45 (NS Flush) 2 ml BID IV FLUSH 03/13/18 21:00 03/14/18 08:48 (Tylenol) 650 mg Q4H PRN PO 03/13/18 16:45 (Zofran Inj) 4 mg Q6H PRN IVP 03/13/18 16:45 (Restoril) 15 mg HS PRN PO 03/13/18 16:45 (Heparin Inj) 5,000 units Q12H SQ 03/13/18 17:00 03/13/18 17:20 (Narcan Inj) 0.4 mg UNSCH PRN IV PUSH 03/13/18 16:45 (Tahmina-Colace) 1 tab BID PO 03/13/18 21:00 03/14/18 07:56 (Milk Of Magnesia Liq) 30 ml Q12H PRN PO 03/13/18 16:45 (Senokot) 17.2 mg Q12H PRN PO 03/13/18 16:45 (Dulcolax Supp) 10 mg DAILY PRN RECTAL 03/13/18 16:45 (Lactulose Liq) 30 ml DAILY PRN PO 03/13/18 16:45 Pharmacy Profile Note 0 ml @ 0 mls/hr UNSCH OTHER 03/13/18 16:45 Piperacillin Sod/ Tazobactam Sod 100 ml @ 200 mls/hr Q6H IV 03/13/18 20:00 03/14/18 13:11 (Cardura) 1 mg DAILY PO 03/14/18 09:00 03/14/18 07:56 (Lyrica) 100 mg BID PO 03/13/18 21:00 03/14/18 07:56 Vancomycin HCl 1500 mg/Sodium Chloride 515 ml @ 257.5 mls/ hr Q12H IV 03/13/18 21:00 03/14/18 08:26 ([facility] Ordered Lab Info) SPECIFIC LAB TO BE ... ONCE ONCE .XX 03/15/18 08:45 03/15/18 08:46 (Prinivil) 10 mg DAILY PO 03/14/18 09:00 03/14/18 09:07 Physical Exam Vital Signs Vital Signs Date Time Temp Pulse Resp B/P (MAP) Pulse Ox O2 Delivery O2 Flow Rate FiO2 03/14/18 15:05 97.2 55 20 161/77 (105) 96 03/14/18 11:17 96.4 52 20 164/77 (106) 98 03/14/18 08:48 18 03/14/18 07:37 96.1 64 20 166/81 (109) 98 03/14/18 00:00 96.3 50 20 158/70 (99) 98 03/13/18 20:00 96.3 60 20 189/91 (123) 98 03/13/18 16:12 66 18 155/80 (105) 99 Physical Exam GENERAL: This is a well-nourished, well-developed patient, in no apparent distress. SKIN: Right plantar hallux callus HEAD: Atraumatic. EYES: Pupils equal round and reactive. ENT: Airway patent. NECK: Trachea midline. RESPIRATORY: Nonlabored breathing. MUSCULOSKELETAL:. Negative Homans sign bilaterally. NEUROLOGICAL: Awake and alert. Normal speech. Lower extremity physical exam: Vascular: Dorsalis pedis 2/4, posterior tibial 2/4. Capillary refill time within normal limits to digits 5 bilateral foot. Edema present right foot Neuro: Gross sensation intact to bilateral lower extremity. Pinpoint sensation decreased. No hyperalgesia noted to bilateral lower extremity Dermatology: Normal temperature and turgor to bilateral lower extremity. Right plantar hallux callus present with underlying discoloration significant for underlying ulceration. Fluctuance noted. No crepitus. Bulbous appearance to right hallux typical of osteomyelitis. Musculoskeletal: No tenderness to palpation Laboratory Date/Time Source Procedure Growth Status 03/13/18 15:03 Blood Peripheral Aerobic Blood Culture - Preliminary NO GROWTH IN 1 DAY Resulted 03/13/18 15:03 Blood Peripheral Anaerobic Blood Culture - Preliminary NO GROWTH IN 1 DAY Resulted Result Diagram: 03/13/18 1456 03/13/18 1456 Imaging Last Impressions Foot X-Ray 03/13/18 0000 Signed Impressions: CONCLUSION: Abnormal destructive lytic lesions of the first interphalangeal joint highly merlos spicious for osteomyelitis not significantly changed. Foot MRI 03/13/18 0000 Signed Impressions: CONCLUSION: 1. Suspected osteomyelitis involving the first proximal phalanx and distal pha lanx. There appears to be bony destruction at the distal medial first proximal phalanx. 2. Dislocation at the first interphalangeal joint with the distal phalanx bein g displaced dorsally. Assessment and Plan Assessment and Plan 57-year-old male with right plantar hallux ulceration and MRI positive for osteomyelitis Patient examined evaluated with all questions answered Bedside debridement of ulceration performed as well as bone biopsy of right hallux Patient is adamant about saving his toe and is refusing amputation at this time He understands that amputation is possible/probable future He understands that he will need to be on IV antibiotics for 6 weeks Patient will need follow-up with [facility] [place], case management to arrange Patient okay to DC per podiatry once bone biopsy results are in an appropriate antibiotic recommendations are made by infectious disease Description of procedure: Right hallux infiltrated with 1% lidocaine plain 6 cc total. 11 blade utilized to sharply debride ulceration. Full-thickness debridement performed to subcutaneous tissue. Peteshidi utilized to perform bone biopsy. Mary Paniagua DPM Mar 14, 2018 16:12
[2018-03-14] MEDS ORDERED: LIDOCAINE HCL 1% 50 ML VIAL NERV BLOCK ONE (16:15)
--- NOTE | 2018-03-14 19:42 | RADRPT ---
EXAM DATE: 03/14/2018 7:38 PM EDT AGE/SEX: 57 years / Male INDICATIONS: Right great toe infection CLINICAL DATA: This is the patient's initial encounter. Patient reports that signs and symptoms have been present for > 1 year and indicates a pain score of 6/10. MEDICAL/SURGICAL HISTORY: . Diabetic, Right toe infection . n/a COMPARISON: No prior exams available for comparison. TECHNIQUE: Four-cuff ankle and brachial pressures were obtained. Pulse cuff waveform tracings of the ankles were recorded, and ankle-brachial indices were calculated. PRESSURES (mmHg): Brachial (arm) : RIGHT: IV SITE, LEFT: 164 Ankle : RIGHT: 150, LEFT: 158 MABEL : RIGHT: 0.91, LEFT: 0.96 RIGHT: , LEFT: PULSED CUFF WAVEFORMS: Not performed due to technical limitations CONCLUSION: 1. Ankle brachial indexes 0.91 on the right and 0.96 on the left, within normal range. Electronically signed by: Jose Elias Tarango MD 03/14/2018 7:41 PM EDT
[2018-03-14 20:00] VITALS: BP 164/86; PULSE 63; RESP 20; TEMP 96.8; O2SAT 99
[2018-03-15] VITALS: BP 142/68; PULSE 60; RESP 20; TEMP 96.5; O2SAT 98
[2018-03-15] MEDS: PIPERACIL-TAZO 4.5 GM PREMIX 100 ML IV SCH ×4 (03:09→20:53)
[2018-03-15] MEDS: HEPARIN SODIUM - SQ 10,000 UNITS/ML VIAL SQ SCH ×2 (05:46→17:19)
[2018-03-15 07:45] VITALS: BP 137/71; PULSE 58; RESP 18; TEMP 96.9; O2SAT 99
[2018-03-15] MEDS: LISINOPRIL 10 MG TAB PO SCH (08:19)
[2018-03-15] MEDS: PREGABALIN 100 MG CAP PO SCH ×2 (08:19→20:53)
[2018-03-15] MEDS: INSULIN ASPART SUPPLEMENTAL SCALE SQ SCH ×4 (08:24→21:00)
[2018-03-15] MEDS: SODIUM CHLORIDE 0.9% FLUSH 10 ML FLUSH IV FLUSH SCH ×2 (08:25→20:53)
[2018-03-15] MEDS: DOCUSATE SODIUM 50 MG/SENNA 8.6 MG TAB PO SCH ×2 (08:25→20:54)
[2018-03-15] MEDS: DOXAZOSIN MESYLATE 1 MG TAB PO SCH (08:25)
[2018-03-15] MEDS ORDERED: PHARMACY ORDERED LAB ONE (08:45)
[2018-03-15] MEDS: VANCOMYCIN 1,500 MG/NS 500 ML IV SCH ×4 (09:29→20:54)
[2018-03-15 11:51] VITALS: BP 184/88; PULSE 62; RESP 18; TEMP 97.7; O2SAT 95
[2018-03-15 12:00] VITALS: BP 162/72
--- NOTE | 2018-03-15 13:50 | HHI.PR ---
Subjective Remarks Pt has no complaints. wants to go home. no pain, n/v/cp/sob Objective Vitals Vital Signs Date Time Temp Pulse Resp B/P (MAP) Pulse Ox O2 Delivery O2 Flow Rate FiO2 03/15/18 12:00 162/72 (102) 03/15/18 11:51 97.7 62 18 184/88 (120) 95 03/15/18 07:45 96.9 58 18 137/71 (93) 99 03/15/18 00:00 96.5 60 20 142/68 (92) 98 03/14/18 20:00 96.8 63 20 164/86 (112) 99 03/14/18 15:05 97.2 55 20 161/77 (105) 96 I/O 03/14/18 03/14/18 03/14/18 03/15/18 03/15/18 03/15/18 07:00 15:00 23:00 07:00 15:00 23:00 Intake Total 1180 ml 1300 ml 890 ml Output Total 1000 ml Balance 1180 ml 1300 ml -110 ml Intake Oral 480 ml 1200 ml 240 ml IV Total 700 ml 100 ml 650 ml Output Urine Total 1000 ml # Voids 7 5 # Bowel Movements 1 1 Result Diagram: 03/13/18 1456 03/13/18 1456 Imaging Last Impressions Extremity Arterial Study 03/14/18 0000 Signed Impressions: CONCLUSION: 1. Ankle brachial indexes 0.91 on the right and 0.96 on the left, within nia l range. Foot X-Ray 03/13/18 0000 Signed Impressions: CONCLUSION: Abnormal destructive lytic lesions of the first interphalangeal joint highly merlos spicious for osteomyelitis not significantly changed. Foot MRI 03/13/18 0000 Signed Impressions: CONCLUSION: 1. Suspected osteomyelitis involving the first proximal phalanx and distal pha lanx. There appears to be bony destruction at the distal medial first proximal phalanx. 2. Dislocation at the first interphalangeal joint with the distal phalanx bein g displaced dorsally. Objective Remarks GENERAL: laying in bed, appears comfortable. LUNGS: Clear to auscultation bilaterally. No wheeze ABDOMEN: Soft, nontender. Nondistended. EXTREMITIES: No edema, pulses are equal bilaterally. NEUROLOGY: Moving all extremities, speech is clear A/P Problem List: (1) Cellulitis of right toe ICD Code: L03.031 - Cellulitis of right toe Status: Acute Assessment and Plan Right great toe callus with abnormal x-ray -Follow-up x-ray does indicate destructive lytic lesions of the first interphalangeal joint highly suspicious for osteomyelitis. MRI and MABEL reviewed. -Continue vancomycin and Zosyn -Podiatry evaluated the pt and debridement/bone biopsy obtained at bedside. f/u biopsy results. Will consult ID tomorrow for assistance w IV abx once biopsy results available for d/c planning as pt will require IV abx x 6 weeks. Pt to f/ u w wound care center. CM assisting w d/c planning. -Continue pain control -ESR wnl and CRP elevated Elevated blood pressure -Lisinopril 10 mg daily was started -Continue monitor blood pressure Diabetes -Accu-Cheks with sliding scale insulin -Diabetic diet DVT prevention -Subcutaneous heparin Discharge Planning will need 6 weeks IV abx once biopsy resulted in 48-72hours. ID consult will be placed. f/u w wound care clinic and podiatry as an outpatient. Marysol León MD Mar 15, 2018 13:50
[2018-03-15 15:41] VITALS: BP 131/66; PULSE 68; RESP 18; TEMP 98.2; O2SAT 98
[2018-03-15 20:00] VITALS: BP 167/79; PULSE 62; RESP 20; TEMP 97.4; O2SAT 99
[2018-03-16] VITALS: BP 136/89; PULSE 60; RESP 20; TEMP 97.8; O2SAT 97
[2018-03-16] MEDS: PIPERACIL-TAZO 4.5 GM PREMIX 100 ML IV SCH ×4 (03:00→20:37)
[2018-03-16] MEDS: HEPARIN SODIUM - SQ 10,000 UNITS/ML VIAL SQ SCH ×2 (05:50→16:24)
[2018-03-16 06:46] LABS: CREATININE 1.2 MG/DL (0.60-1.30)
[2018-03-16 07:50] VITALS: BP 157/73; PULSE 52; RESP 20; TEMP 96.6; O2SAT 94
[2018-03-16] MEDS: VANCOMYCIN 1,500 MG/NS 500 ML IV SCH ×4 (09:05→21:52)
[2018-03-16] MEDS: SODIUM CHLORIDE 0.9% FLUSH 10 ML FLUSH IV FLUSH SCH ×2 (09:07→20:37)
[2018-03-16] MEDS: LISINOPRIL 10 MG TAB PO SCH (09:08)
[2018-03-16] MEDS: DOCUSATE SODIUM 50 MG/SENNA 8.6 MG TAB PO SCH ×2 (09:08→20:38)
[2018-03-16] MEDS: INSULIN ASPART SUPPLEMENTAL SCALE SQ SCH ×4 (09:08→21:00)
[2018-03-16] MEDS: PREGABALIN 100 MG CAP PO SCH ×2 (09:08→20:37)
[2018-03-16] MEDS: DOXAZOSIN MESYLATE 1 MG TAB PO SCH (09:08)
--- NOTE | 2018-03-16 11:26 | HHI.PR ---
Subjective Remarks Pt feeling confused about making a decision. He is worried that he will do IV abx and still loose his toe. Wonders what the best approach is. Looking forward to speaking w ID as he is concerned about spreading of the infection to his leg. Denies any pain, nausea or vomiting, sob Objective Vitals Vital Signs Date Time Temp Pulse Resp B/P (MAP) Pulse Ox O2 Delivery O2 Flow Rate FiO2 03/16/18 07:50 96.6 52 20 157/73 (101) 94 03/16/18 00:00 97.8 60 20 136/89 (105) 97 03/15/18 20:00 97.4 62 20 167/79 (108) 99 03/15/18 15:41 98.2 68 18 131/66 (87) 98 03/15/18 12:00 162/72 (102) 03/15/18 11:51 97.7 62 18 184/88 (120) 95 I/O 03/15/18 03/15/18 03/15/18 03/16/18 03/16/18 03/16/18 07:00 15:00 23:00 07:00 15:00 23:00 Intake Total 890 ml 1060 ml 1110 ml 100 ml Output Total 1000 ml 400 ml 1200 ml Balance -110 ml 660 ml -90 ml 100 ml Intake Oral 240 ml 960 ml 480 ml IV Total 650 ml 100 ml 630 ml 100 ml Output Urine Total 1000 ml 400 ml 1200 ml # Voids 3 # Bowel Movements 1 1 1 Result Diagram: 03/13/18 1456 03/16/18 0520 Imaging Last Impressions Extremity Arterial Study 03/14/18 0000 Signed Impressions: CONCLUSION: 1. Ankle brachial indexes 0.91 on the right and 0.96 on the left, within nia l range. Foot X-Ray 03/13/18 0000 Signed Impressions: CONCLUSION: Abnormal destructive lytic lesions of the first interphalangeal joint highly merlos spicious for osteomyelitis not significantly changed. Foot MRI 03/13/18 Signed Impressions: CONCLUSION: 1. Suspected osteomyelitis involving the first proximal phalanx and distal pha lanx. There appears to be bony destruction at the distal medial first proximal phalanx. 2. Dislocation at the first interphalangeal joint with the distal phalanx bein g displaced dorsally. Objective Remarks GENERAL:sitting up in bed, appears comfortable. LUNGS: Clear to auscultation bilaterally. No wheeze ABDOMEN: Soft, nontender. Nondistended. EXTREMITIES: No edema, dressing over foot NEUROLOGY: Moving all extremities, speech is clear A/P Problem List: (1) Cellulitis of right toe ICD Code: L03.031 - Cellulitis of right toe Status: Acute Assessment and Plan Right great toe callus with abnormal x-ray -Follow-up x-ray does indicate destructive lytic lesions of the first interphalangeal joint highly suspicious for osteomyelitis. MRI and MABEL reviewed. -Continue vancomycin and Zosyn -Podiatry evaluated the pt and debridement/bone biopsy obtained at bedside. f/u biopsy results. ID consult placed for assistance w IV abx once biopsy results available for d/c planning as pt will require IV abx x 6 weeks. Pt to f/u w wound care center, wound care consult also placed. CM assisting w d/c planning. -Continue pain control -ESR wnl and CRP elevated Elevated blood pressure -Lisinopril 10 mg daily was started -Continue monitor blood pressure -added amlodipine 5mg daily. Diabetes -Accu-Cheks with sliding scale insulin -Diabetic diet DVT prevention -Subcutaneous heparin Discharge Planning will need 6 weeks IV abx once biopsy resulted in 48-72hours. ID consult placed. f/u w wound care clinic and podiatry as an outpatient. Pt considering toe amputation but would like input from Marysol Nicole MD Mar 16, 2018 11:26
[2018-03-16 11:30] VITALS: BP 140/70; PULSE 56; RESP 20; TEMP 97.5; O2SAT 98
[2018-03-16] MEDS ORDERED: amLODIPine BESYLATE 5 MG TAB PO ONE (11:30)
[2018-03-16 15:50] VITALS: BP 157/71; PULSE 59; RESP 20; TEMP 97; O2SAT 96
--- NOTE | 2018-03-16 18:25 | PD.WCN.NOT ---
Wound Consult Description: Wound consult ordered by Krystle LABOY Communicated with: Sharona SHEA, Krystle LABOY Recommendation: 1. Cleanse right great toe with normal saline pat dry. 2. Gently pack Maxorb AG thin strip into wound base leaving tail exposed. 3. Cover with dry gauze secure with rolled gauze/tape apply stockinette. 4. Change dressing every 7-10 days or as needed for dislodgement/exudate management.sign and date all dressings. 5. Follow up with out patient wound center within 1 week of discharge. Additional Information: Patient was seen today in [facility] by insurance writer and Sharona SHEA .Patient alert and oriented x4 with no current complaints of acute distress/discomfort.Dressing removed from right foot with out difficulty .Fraud Representative was able to visualize diabetic ulcer on right plantar great toe measuring 0.3cm x 0.2cm x 0.6cm.Fraud Representative was unable to visualize wound base entirely.Fraud Representative probed wound base with cotton tip applicator and scant bloody exudate noted with out odor. Periwound dry intact.No erythema or induration noted.Wound cleansed with normal saline pat dry Maxorb AG cut in thin strip gently packed into wound base and covered with dry gauze secured with rolled gauze /paper tape.Dressing signed and dated stocking nett applied.Patient tolerated wound care well.Reinforced teaching on foot inspection ,skin care ,signs and symptoms of infection.Patient verbalized understanding using teach back method. Roula Pimentel [facility] Mar 16, 2018 18:25
[2018-03-16 20:00] VITALS: BP 172/80; PULSE 59; RESP 20; TEMP 98.3; O2SAT 98
[2018-03-17] VITALS: BP 141/65; PULSE 54; RESP 20; TEMP 96.8; O2SAT 98
[2018-03-17] MEDS: PIPERACIL-TAZO 4.5 GM PREMIX 100 ML IV SCH ×2 (02:55→08:00)
[2018-03-17] MEDS: HEPARIN SODIUM - SQ 10,000 UNITS/ML VIAL SQ SCH ×3 (05:00→21:00)
[2018-03-17] MEDS: INSULIN ASPART SUPPLEMENTAL SCALE SQ SCH ×4 (07:59→20:59)
[2018-03-17 08:00] VITALS: BP 149/73; PULSE 54; RESP 18; TEMP 96.6; O2SAT 94
[2018-03-17] MEDS ORDERED: PHARMACY ORDERED LAB ONE (08:45)
[2018-03-17] MEDS: DOCUSATE SODIUM 50 MG/SENNA 8.6 MG TAB PO SCH (09:00)
[2018-03-17] MEDS: VANCOMYCIN 1,500 MG/NS 500 ML IV SCH ×4 (09:57→22:01)
[2018-03-17] MEDS: SODIUM CHLORIDE 0.9% FLUSH 10 ML FLUSH IV FLUSH SCH ×2 (09:57→20:59)
[2018-03-17] MEDS: amLODIPine BESYLATE 5 MG TAB PO SCH (09:58)
[2018-03-17] MEDS: DOXAZOSIN MESYLATE 1 MG TAB PO SCH (09:58)
[2018-03-17] MEDS: PREGABALIN 100 MG CAP PO SCH ×2 (09:58→20:59)
[2018-03-17] MEDS: LISINOPRIL 10 MG TAB PO SCH (09:58)
--- NOTE | 2018-03-17 10:51 | HHI.PR ---
Subjective Remarks Patient seen and evaluated today in follow-up for right great toe infection Cultures positive for MRSA and E. coli. Patient tolerating vancomycin and Zosyn without difficulty. Awaiting vascular for line placement as well as ID consult Objective Vitals Vital Signs Date Time Temp Pulse Resp B/P (MAP) Pulse Ox O2 Delivery O2 Flow Rate FiO2 03/17/18 08:00 96.6 54 18 149/73 (98) 94 03/17/18 00:00 96.8 54 20 141/65 (90) 98 03/16/18 20:00 98.3 59 20 172/80 (110) 98 03/16/18 15:50 97.0 59 20 157/71 (99) 96 03/16/18 11:30 97.5 56 20 140/70 (93) 98 I/O 03/16/18 03/16/18 03/16/18 03/17/18 03/17/18 03/17/18 07:00 15:00 23:00 07:00 15:00 23:00 Intake Total 1110 ml 715 ml 1561 ml 615 ml 100 ml Output Total 1200 ml 1500 ml 1000 ml Balance -90 ml 715 ml 61 ml -385 ml 100 ml Intake Oral 480 ml 1461 ml IV Total 630 ml 715 ml 100 ml 615 ml 100 ml Output Urine Total 1200 ml 1500 ml 1000 ml # Voids 6 # Bowel Movements 1 2 1 Result Diagram: 03/13/18 1456 03/16/18 0520 Imaging Last Impressions Extremity Arterial Study 03/14/18 0000 Signed Impressions: CONCLUSION: 1. Ankle brachial indexes 0.91 on the right and 0.96 on the left, within nia l range. Foot X-Ray 03/13/18 0000 Signed Impressions: CONCLUSION: Abnormal destructive lytic lesions of the first interphalangeal joint highly merlos spicious for osteomyelitis not significantly changed. Foot MRI 03/13/18 0000 Signed Impressions: CONCLUSION: 1. Suspected osteomyelitis involving the first proximal phalanx and distal pha lanx. There appears to be bony destruction at the distal medial first proximal phalanx. 2. Dislocation at the first interphalangeal joint with the distal phalanx bein g displaced dorsally. Objective Remarks GENERAL: This is a well-nourished, well-developed patient, in no apparent distress. CARDIOVASCULAR: Regular rate and rhythm without murmurs, gallops, or rubs. RESPIRATORY: Clear to auscultation. Breath sounds equal bilaterally. No wheezes , rales, or rhonchi. GASTROINTESTINAL: Abdomen soft, non-tender, nondistended. Normal active bowel sounds MUSCULOSKELETAL: Right great toe swelling is improved Less erythema, otherwise extremities without clubbing, cyanosis, or edema. NEURO: Alert & Oriented x4 to person, place, time, situation. Moves all ext x4 A/P Problem List: (1) Cellulitis of right toe ICD Code: L03.031 - Cellulitis of right toe Status: Acute Plan: Patient with evidence of osteomyelitis which required IV antibiotics for at least 6 weeks to treat MRSA and E. coli in this patient with diabetes. Follow-up with infectious disease team as well as vascular team for IV line placement (2) DM2 (diabetes mellitus, type 2) ICD Code: E11.9 - Type 2 diabetes mellitus without complications Plan: Currently controlled with sliding scale insulin Patient with diabetic neuropathy treated with Lyrica (3) HTN (hypertension) ICD Code: I10 - Essential (primary) hypertension Plan: Continue with Norvasc, doxazosin and lisinopril Controlled Discharge Planning With home health care for antibiotics likely discharge home ID consult pending and antibiotic arrangements are being made Supriya Bonner MD Mar 17, 2018 10:51
[2018-03-17 12:00] VITALS: BP 163/74; PULSE 55; RESP 18; TEMP 97.7; O2SAT 96
[2018-03-17] MEDS ORDERED: PIPERACIL-TAZO 4.5 GM PREMIX 100 ML IV SCH (14:00)
[2018-03-17 16:00] VITALS: BP 155/72; PULSE 60; RESP 18; TEMP 97.7; O2SAT 96
--- NOTE | 2018-03-17 19:41 | PD.ID.CON ---
History of Present Illness Service ID Consult Requested By Arlet Drake Reason for Consult Hallux osteo, DFI Primary Care Physician Gregory Pedersen MD Diagnoses: History of Present Illness 57 yo male with DM, diabetic neuropahty and swelling of R hallux for at least a month He apparently has been having intermittent problems with the same toe for a year and s/p ,multiple short duration treatments (10 days) He presented with swelling redness of the toe, foot up to ankle in the end of February and was started on IV abx MRI showed R hallux osteo NO fever, no leukocytosis Improved on IV abx Clx grew out MRSA and E.coli ABIs wnl b/l Review of Systems Except as stated in HPI: all other systems reviewed are Neg Past Family Social History Allergies: Coded Allergies: No Known Allergies (Unverified Allergy, Unknown, 03/13/18) Past Medical History Diabetes Peripheral neuropathy Benign prostatic hypertrophy History of obesity with significant weight loss over the last year from 370 pounds down to 180 pounds Depression History of renal failure from urinary retention. Patient has history of self cathing Chronic tobacco use History of alcohol abuse Past Surgical History Patient denies any previous surgeries Active Ordered Medications Medications where reviewed in EMR Antibiotics Include: monique saldivar Family History Reviewed is significant for mother at age 75 with diabetes, patient required lower extremity amputation, she had coronary artery disease with bypass surgery. Father still alive at age 89 with diabetes, coronary artery disease with bypass surgery. Patient states that brother also with bypass surgery Social History Social History Patient does continue to smoke, states he only smoked 1 cigarette daily. He is a smoker half a pack a day since he was 13 years old. He does smoke marijuana 2 times daily. Patient denies any alcohol use at this time. Used to be heavy drinker in the past Physical Exam Vital Signs Vital Signs Date Time Temp Pulse Resp B/P (MAP) Pulse Ox O2 Delivery O2 Flow Rate FiO2 03/17/18 16:00 97.7 60 18 155/72 (99) 96 03/17/18 12:00 97.7 55 18 163/74 (103) 96 03/17/18 10:58 18 03/17/18 08:00 96.6 54 18 149/73 (98) 94 03/17/18 00:00 96.8 54 20 141/65 (90) 98 6/11/18 20:00 98.3 59 20 172/80 (110 98 Physical Exam CONSTITUTIONAL/GENERAL: This is an adequately nourished patient, in no apparent distress. TUBES/LINES/DRAINS: SKIN: No jaundice, rashes, or lesions. Skin temperature appropriate. Not diaphoretic. HEAD: Atraumatic. Normocephalic. EYES: Pupils equal and round and reactive. Extraocular motions intact. No scleral icterus. No injection or drainage. Fundi not examined. ENT: Hearing grossly normal. Nose without bleeding or purulent drainage. Throat without visible erythema, exudates, masses, or lesions. NECK: Trachea midline. Supple, nontender. CARDIOVASCULAR: Regular rate and rhythm without murmurs, gallops, or rubs. No JVD. Peripheral pulses symmetric. RESPIRATORY/CHEST: Symmetric, unlabored respirations. Clear to auscultation. Breath sounds equal bilaterally. No wheezes, rales, or rhonchi. GASTROINTESTINAL: Abdomen soft, non-tender, nondistended. No hepato-splenomegaly , or palpable masses. No guarding. Bowel sounds present. GENITOURINARY: Without palpable bladder distension. MUSCULOSKELETAL: Extremities without clubbing, cyanosis, or edema. No joint tenderness or effusion noted. No calf tenderness. No mottling or clubbing. Both feet with markedly decreased sensation to light touch more prominent on LLE R hallux swollen, sausage sahped , about 1.5-2 x more thn L and has a small wound on the back refill brisk - < 2 sec. Skina appaedages in good condition LYMPHATICS: No palpable cervical or supraclavicular adenopathy. + R inguinal lymph nodule mildly enlarges NEUROLOGICAL: Awake and alert. Motor and sensory grossly within normal limits. Follows commands. Cognitively sharp. Moves all extremities. PSYCHIATRIC: No obvious anxiety/depression. no apparent hallucinations or other psychotic thought process. Laboratory Laboratory Tests Test 03/17/18 08:50 Vancomycin Level Trough 17.0 Date/Time Source Procedure Growth Status 03/13/18 15:03 Blood Peripheral Aerobic Blood Culture - Preliminary NO GROWTH IN 4 DAYS Resulted 03/13/18 15:03 Blood Peripheral Anaerobic Blood Culture - Preliminary NO GROWTH IN 4 DAYS Resulted 03/14/18 16:30 Wound Foot Gram Stain - Final Complete 03/14/18 16:30 Wound Foot Wound Culture - Final RARE GROWTH NORMAL SKIN PRECIOUS... Complete Result Diagram: 03/13/18 1456 03/16/18 0520 Imaging Last Impressions Extremity Arterial Study 03/14/18 0000 Signed Impressions: CONCLUSION: 1. Ankle brachial indexes 0.91 on the right and 0.96 on the left, within nia l range. Foot X-Ray 03/13/18 0000 Signed Impressions: CONCLUSION: Abnormal destructive lytic lesions of the first interphalangeal joint highly merlos spicious for osteomyelitis not significantly changed. Foot MRI 03/13/18 0000 Signed Impressions: CONCLUSION: 1. Suspected osteomyelitis involving the first proximal phalanx and distal pha lanx. There appears to be bony destruction at the distal medial first proximal phalanx. 2. Dislocation at the first interphalangeal joint with the distal phalanx bein g displaced dorsally. Assessment and Plan Assessment and Plan R hallux DFI, MRSA, E.coli - will try to Rx x 8 weeks conservatively - vancomycin + CFTX PICC OPAT OK to dc once [facility] arranged Discussed Condition With pt La Deutsch MD Mar 17, 2018 19:41
--- NOTE | 2018-03-17 19:45 | HHI.FF ---
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 [] May leave port accessed during therapy. [] May leave peripheral site accessed for duration of therapy. [x] If patient has SOB or respiratory distress, check oxygen saturation. If less than 90% or clinical signs of respiratory distress, administer oxygen at 2 L/min. via nasal cannula and notify physician. [x] Anaphylaxis/Reaction orders: * Stop infusion. * Keep IV line open with saline flush. * Notify physician. * Monitor vital signs every 15 minutes until symptoms resolve. * Check Oxygen saturation; Oxygen at 2 L/min. via nasal cannula if less than 90% or clinical signs of respiratory distress. * Administer diphenhydramine (Benadryl) 25 mg IV STAT, (unless patient has received as pre-med). May repeat once, if necessary. * Solu-Cortef 250 mg IVP over 30-60 seconds, use 100 mg vials for each dissolution. * Epinephrine (1mg/1 ml) 0.3 mg subcutaneously or IVP now with any signs of respiratory distress. * Check with physician for new additional pre-med orders if patient is re- challenged or re-treated. [x] May remove PICC line when treatment complete, after confirming with Physician. [x] If the patient is admitted to the hospital, the ED, or transferred via [facility] , complete transfer form including medication reconciliation order sheet. Laboratory Tests Weekly Labs: CBC w/diff, CMP, CRP, SED Rate, Vancomycin Trough La Deutsch MD Mar 17, 2018 19:45
[2018-03-17] MEDS ORDERED: cefTRIAXone INJ 2,000 MG in SODIUM CHLORIDE 0.9% INJ 100 ML IV SCH (20:00)
[2018-03-17 20:30] VITALS: BP 151/76; PULSE 56; RESP 20; TEMP 96.4; O2SAT 97
[2018-03-18 00:22] VITALS: BP 122/63; PULSE 53; RESP 20; TEMP 96.7; O2SAT 95
[2018-03-18] MEDS: HEPARIN SODIUM - SQ 10,000 UNITS/ML VIAL SQ SCH (05:52)
[2018-03-18] MEDS: INSULIN ASPART SUPPLEMENTAL SCALE SQ SCH (07:19)
[2018-03-18 07:49] VITALS: BP 135/72; PULSE 56; RESP 22; TEMP 98.5; O2SAT 95
[2018-03-18] MEDS: VANCOMYCIN 1,500 MG/NS 500 ML IV SCH ×2 (08:41)
[2018-03-18] MEDS: DOXAZOSIN MESYLATE 1 MG TAB PO SCH (08:46)
[2018-03-18] MEDS: amLODIPine BESYLATE 5 MG TAB PO SCH (08:47)
[2018-03-18] MEDS: PREGABALIN 100 MG CAP PO SCH (08:47)
[2018-03-18] MEDS: LISINOPRIL 10 MG TAB PO SCH (08:47)
[2018-03-18] MEDS: SODIUM CHLORIDE 0.9% FLUSH 10 ML FLUSH IV FLUSH SCH (08:47)
[2018-03-18 09:47] VITALS: RESP 18
[2018-03-18] MEDS ORDERED: SODIUM CHLORIDE 0.9% FLUSH 10 ML FLUSH IV FLUSH PRN (10:15)
--- NOTE | 2018-03-18 10:46 | HHI.PR ---
Subjective Remarks Patient seen and evaluated in follow-up for right great toe infection. Infectious disease follow-up appreciated. Discharge plans discussed with patient and nursing team Objective Vitals Vital Signs Date Time Temp Pulse Resp B/P (MAP) Pulse Ox O2 Delivery O2 Flow Rate FiO2 03/18/18 09:47 18 03/18/18 07:49 98.5 56 22 135/72 (93) 95 03/18/18 00:22 96.7 53 20 122/63 (82) 95 03/17/18 20:30 96.4 56 20 151/76 (101) 97 03/17/18 16:00 97.7 60 18 155/72 (99) 96 03/17/18 12:00 97.7 55 18 163/74 (103) 96 I/O 03/17/18 03/17/18 03/17/18 03/18/18 03/18/18 03/18/18 07:00 15:00 23:00 07:00 15:00 23:00 Intake Total 615 ml 615 ml 800 ml 515 ml 240 ml Output Total 1000 ml 500 ml 250 ml Balance -385 ml 615 ml 300 ml 265 ml 240 ml Intake Oral 600 ml 240 ml IV Total 615 ml 615 ml 200 ml 515 ml Output Urine Total 1000 ml 500 ml 250 ml # Voids 4 # Bowel Movements 1 Result Diagram: 03/18/18 0521 Objective Remarks GENERAL: This is a well-nourished, well-developed patient, in no apparent distress. CARDIOVASCULAR: Regular rate and rhythm without murmurs, gallops, or rubs. RESPIRATORY: Clear to auscultation. Breath sounds equal bilaterally. No wheezes , rales, or rhonchi. GASTROINTESTINAL: Abdomen soft, non-tender, nondistended. Normal active bowel sounds MUSCULOSKELETAL: Right great toe swelling is improved Less erythema, otherwise extremities without clubbing, cyanosis, or edema. NEURO: Alert & Oriented x4 to person, place, time, situation. Moves all ext x4 A/P Problem List: (1) Cellulitis of right toe ICD Code: L03.031 - Cellulitis of right toe Status: Acute Plan: Patient with evidence of osteomyelitis which required IV antibiotics for at 8 weeks to treat MRSA and E. coli in this patient with diabetes. Continue with home health care for IV antibiotics (2) DM2 (diabetes mellitus, type 2) ICD Code: E11.9 - Type 2 diabetes mellitus without complications Plan: Currently controlled with sliding scale insulin Patient with diabetic neuropathy treated with Lyrica (3) HTN (hypertension) ICD Code: I10 - Essential (primary) hypertension Plan: Continue with Norvasc, doxazosin and lisinopril Controlled Discharge Planning Discharge home Supriya Bonner MD Mar 18, 2018 10:46
[2018-03-18] MEDS ORDERED: LISI-515 PO (10:48)
--- NOTE | 2018-03-18 10:48 | HHI.FF ---
Face to Face Verification Diagnosis: (1) Cellulitis of right toe (2) DM2 (diabetes mellitus, type 2) Home Health Nursing Order: Medical education Diabetic education Wound care and dressing changes Nursing assessment with vital signs IV medication administration I have seen patient Cirilo Monroe on 03/18/18. My clinical findings support the need for the requested home health care services because: High risk of falls I certify that my clinical findings support that this patient is homebound because: Unsteady gait/balance Supriya Bonner MD Mar 18, 2018 10:48
--- NOTE | 2018-03-18 10:51 | HHI.DS ---
Discharge Summary Admission Date Mar 18, 2018 at 10:26 Discharge Date: Mar 18, 2018 Admitting Diagnosis RIGHT GREAT TOE OSTEOMYELITIS (1) Cellulitis of right toe ICD Code: L03.031 - Cellulitis of right toe Status: Acute (2) DM2 (diabetes mellitus, type 2) ICD Code: E11.9 - Type 2 diabetes mellitus without complications (3) HTN (hypertension) ICD Code: I10 - Essential (primary) hypertension Procedures Bedside debridement of ulceration performed as well as bone biopsy of right hallux Brief History - From Admission Written by Mickey Justin, acting as scribe for Dr. León on 03/13/18 at 18: 06. 57-year-old male with known history of diabetes, diabetic neuropathy, benign prostatic hypertrophy, history of morbid obesity, history of renal failure, depression who presented to the emergency department at the request of his prior medical doctor because of abnormal foot x-ray. Patient indicates that he has had a long-standing history of callus and wound on his right big toe. It dates back over a year ago. He states that he has come to the ER here in the past and has been given antibiotics and sent home. Patient recently went up to [place] on February 05 in which he had significant swelling of his entire foot so he went to a hospital there and had x-ray performed and told that he has an infection but there was no osteomyelitis. Patient was placed on antibiotics and took until completion. Patient states that he went to a prior medical doctor yesterday and had evaluation done he was started on Bactrim and had outpatient x-ray performed today. Patient states that he received a phone call from the prior medical doctor telling him to come to the emergency department because x-ray showed osteomyelitis and that there was infection in the bone. Patient states that he has chronic wound with callus there. There is been no drainage, erythema or any significant pain. Intermittently he states that he will peel the callus off revealing a large ulcer but he will keep it covered and it will grow back. Patient did come to the emergency department and was recommended by the ER physician that the patient be observed in the hospital with podiatry consultation for further evaluation. Patient denies any fever, chills CBC/BMP: 03/18/18 0521 Significant Findings Laboratory Tests Test 03/16/18 05:20 03/17/18 08:50 03/18/18 05:21 Estimat Glomerular Filtration Rate 62 ML/MIN (>89) 76 ML/MIN (>89) Vancomycin Level Trough 17.0 MCG/ML (5.0-10.0) PE at Discharge GENERAL: This is a well-nourished, well-developed patient, in no apparent distress. CARDIOVASCULAR: Regular rate and rhythm without murmurs, gallops, or rubs. RESPIRATORY: Clear to auscultation. Breath sounds equal bilaterally. No wheezes , rales, or rhonchi. GASTROINTESTINAL: Abdomen soft, non-tender, nondistended. Normal active bowel sounds MUSCULOSKELETAL: Right great toe swelling is improved Less erythema, otherwise extremities without clubbing, cyanosis, or edema. NEURO: Alert & Oriented x4 to person, place, time, situation. Moves all ext x4 Pt update on day of discharge Please see daily progress note Hospital Course Patient was seen and evaluated in follow-up for right great toe infection. Was seen by podiatry with bedside I&D. He did have improvement with antibiotics. Was seen by infectious disease as well for antibiotic planning. Pt Condition on Discharge: Good Discharge Disposition: Discharge Home Discharge Time: <= 30 minutes Discharge Instructions DIET: Follow Instructions for: Diabetic Diet Activities you can perform: Regular-No Restrictions Follow up Referrals: [facility] - 1 Week @ [facility] New Orders: CREATININE - 1 Week VANCOMYCIN RANDOM - 1 Week New Medications: Lisinopril (Lisinopril) 20 Mg Tab 20 MG PO DAILY, #30 TAB 0 Refills Continued Medications: Aspirin (Aspirin 81 Low Dose) 81 Mg Chew 81 MG CHEW DAILY, #30 TAB Doxazosin (Doxazosin) 1 Mg Tab 2 MG PO DAILY, #30 TAB 0 Refills Metformin (Metformin) 500 Mg Tab 500 MG PO BIDPC for Blood Sugar Management, #60 TAB 0 Refills Pregabalin (Lyrica) 100 Mg Cap 100 MG PO BID, #60 CAP 0 Refills Additional Information Vancomycin 1.5 grams IV q 12 hours Start Treatment: Mar 17, 2018 Stop Treatment: May 10, 2018 Ceftriaxone 2 grams IV q 24 hours Start Treatment: Mar 17, 2018 Stop Treatment: May 10, 2018 Supriya Bonner MD Mar 18, 2018 10:51
--- NOTE | 2018-03-18 11:43 | HHI.FF ---
Face to Face Verification Diagnosis: (1) Cellulitis of right toe Home Health Nursing Order: Medical education IV medication administration (teaching and training for IV infusions) I have seen patient Cirilo Monroe on 03/18/18. My clinical findings support the need for the requested home health care services because: Med compliance is questionable Injectable med education/admin I certify that my clinical findings support that this patient is homebound because: Unsteady gait/balance Supriya Bonner MD Mar 18, 2018 11:43
--- NOTE | 2018-03-18 11:56 | RADRPT ---
EXAM DATE: 03/18/2018 11:02 AM EDT AGE/SEX: 57 years / Male INDICATIONS: Post PICC line placement. CLINICAL DATA: This is the patient's initial encounter. Patient reports that signs and symptoms have been present for 1 day and indicates a pain score of 0/10. MEDICAL/SURGICAL HISTORY: Diabetes. Neuropathy. Stage 5 renal failure. Enlarged prostate. Great toe osteomyelitis. None. [place] [facility] [place]. . FINDINGS: PICC line in good position. Lungs are clear. The heart and pulmonary vascularity are normal. The port ion of the bony skeleton visualized is unremarkable. CONCLUSION: PICC line in good position. Electronically signed by: Hemant Barajas MD 03/18/2018 11:54 AM EDT
[2018-03-19] MEDS ORDERED: SODIUM CHLORIDE 0.9% FLUSH 10 ML FLUSH IV FLUSH SCH (09:00)
[2018-03-21] MEDS ORDERED: PHARMACY ORDERED LAB ONE (08:45)
== END 2018-03-18 12:57 | disposition home or self-care (01) | DRG 581 ==
LOC: PHED 14:13 → PHEDA 15:32 → PH3B 16:45 → OBSVTOIN 03-18 10:26
PROVIDERS: ADMIT Hospitalist; ATTEND Hospitalist
PROC: 0QBQ3ZX Excision of Right Toe Phalanx, Percutaneous Approach, Diagnostic (ICD-10-PCS; principal; 2018-03-14)
PROC: 0HBMXZZ Excision of Right Foot Skin, External Approach (ICD-10-PCS; 2018-03-14)
PROC: 05HY33Z Insertion of Infusion Device into Upper Vein, Percutaneous Approach (ICD-10-PCS; 2018-03-18)
DX: L03.031 Cellulitis of right toe (principal); E11.40 Type 2 diabetes mellitus with diabetic neuropathy, unspecified; E11.622 Type 2 diabetes mellitus with other skin ulcer; L97.519 Non-pressure chronic ulcer of other part of right foot with unspecified severity; L84 Corns and callosities; Z79.84 Long term (current) use of oral hypoglycemic drugs; B95.62 Methicillin resistant Staphylococcus aureus infection as the cause of diseases classified elsewhere; B96.20 Unspecified Escherichia coli [E. coli] as the cause of diseases classified elsewhere; I10 Essential (primary) hypertension; N40.0 Benign prostatic hyperplasia without lower urinary tract symptoms; E66.01 Morbid (severe) obesity due to excess calories; Z68.30 Body mass index [BMI] 30.0-30.9, adult; F17.210 Nicotine dependence, cigarettes, uncomplicated; F12.90 Cannabis use, unspecified, uncomplicated; Z79.82 Long term (current) use of aspirin
CPT/HCPCS: 71045; 73630; 73720; 80053; 80202; 82565; 82948; 83605; 85025; 85652; 86140; 86403; 87015; 87040; 87070; 87077; 87102; 87116; 87147; 87186; 87205; 87206; 88305; 88307; 88311; 90471; 90732; 93922; A9579; G0009; J0692; J0696; J1644; J1815; J2543; J3370; J7040; J7050